=== PATIENT | male | born 1960 | race Caucasian/White ===

== ENCOUNTER 2020-05-13 16:13 | Emergency (ER) | payer OTHER ==
[~2020-05-13] VITALS: Ht 180 cm; Wt 92.9 kg
[~2020-05-13 16:13] MED LIST: BUDE10.22 IH; LISI10TA PO; MNTL10T PO; OMEP-10 PO; ZLP10T PO
[2020-05-13 16:53] LABS: BASOPHILS % (AUTO) 1 % (0-10); EOSINOPHILS # (AUTO) 0.2 10^3/uL (0.0-0.3); EOSINOPHILS % (AUTO) 3 % (0-10); HEMATOCRIT 45 % (40-54); HEMOGLOBIN 15.2 g/dL (13.3-17.7); LYMPHOCYTES # (AUTO) 1.8 10^3/uL (1.0-4.0); LYMPHOCYTES % (AUTO) 27 % (12-44); MEAN CORPUSCULAR HEMOGLOBIN 32 pg (25-34); MEAN CORPUSCULAR HGB CONC 34 g/dL (32-36); MEAN CORPUSCULAR VOLUME 93 fL (80-99); MEAN PLATELET VOLUME 10.5 fL (9.0-12.2); MONOCYTES # (AUTO) 0.5 10^3/uL (0.0-1.0); MONOCYTES % (AUTO) 8 % (0-12); NEUTROPHILS # (AUTO) 4.1 10^3/uL (1.8-7.8); NEUTROPHILS % (AUTO) 61 % (42-75); PLATELET COUNT 198 10^3/uL (130-400); WHITE BLOOD COUNT 6.6 10^3/uL (4.3-11.0)
--- NOTE | 2020-05-13 16:58 | ED General ---
General Chief Complaint: Dizziness/Syncope Stated Complaint: DIZZY/LIGHTHEADED Source of Information: Patient Exam Limitations: No Limitations (EDDIE HARDING MD) History of Present Illness Date Seen by Provider: May 13, 2020 Time Seen by Provider: 16:35 Initial Comments Patient is a 60-year-old male who presents to the emergency room today with a chief complaint of feeling "lightheaded", he describes this disease feels like he is going to pass out. Patient states that he has had similar symptoms in the past as he describes that he has had an intracranial hemorrhage related to elevated blood pressure approximately 1 year ago when he lived in [place]. Patient states to me that "a blood vessel popped in my head". He did not have any surgical intervention with this. He states it was found on MRI. He states after this "stroke" he underwent visual physical therapy to improve his symptoms. Patient states at the time he was off of his blood pressure medications and that is why this happened. Patient states that approximately 2 weeks ago when the symptoms of lightheadedness started he was taking lesser amounts of his blood pressure pills because he had not yet established care here. Patient denies any headache. He states occasionally his near vision is a little bit more blurry than usual. He denies double vision. He denies any unilateral weakness, numbness or tingling. No sensory deficits. No problems with balance or coordination. Patient denies any black or bloody stools, recent illness. All other review of systems reviewed and negative except as stated. Timing/Duration: Constant (2 weeks) Severity: Moderate Modifying Factors: worse with Movement (EDDIE HARDING MD) Allergies and Home Medications Allergies Coded Allergies: Penicillins (Verified Allergy, Unknown, 11/07/13) Home Medications Zolpidem Tartrate 10 Mg Tab, 10 MG PO HS, (Reported) Patient Home Medication List Home Medication List Reviewed: Yes (EDDIE HARDING MD) Review of Systems Review of Systems Constitutional: see HPI EENTM: blurred vision; No double vision Respiratory: no symptoms reported Cardiovascular: no symptoms reported Gastrointestinal: no symptoms reported Genitourinary: no symptoms reported Musculoskeletal: no symptoms reported Skin: no symptoms reported Psychiatric/Neurological: Other ("Lightheaded", feels near syncopal) (EDDIE HARDING MD) All Other Systems Reviewed Negative Unless Noted: Yes (EDDIE HARDING MD) Physical Exam Vital Signs Vital Signs - First Documented 05/13/20 16:39 Temp 36.4 Pulse 78 Resp 18 B/P (MAP) 161/130 (140) Pulse Ox 97 O2 Delivery Room Air (NITIN,TALITA K DO) Vital Signs Capillary Refill : (EDDIE HARDING MD) Height, Weight, BMI Height: 5'11.00" Weight: 235lbs. oz. 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 Norm as Tested; No Abnormal track laying machine operator II-XII, No Aphasia, No Disoriented, No EOM Palsy, No Facial Droop, No Motor Weakness, No Sensory Deficit Skin: Normal Color, Warm/Dry (EDDIE HARDING MD) Progress/Results/Core Measures Suspected Sepsis SIRS Temperature: Pulse: Respiratory Rate: Laboratory Tests 05/13/20 16:44: White Blood Count 6.6 Blood Pressure / Mean: Laboratory Tests 05/13/20 16:44: Creatinine 0.81, Platelet Count 198 (EDDIE HARDING MD) Results/Orders Lab Results Laboratory Tests Test 05/13/20 16:44 Range/Units White Blood Count 6.6 4.3-11.0 10^3/uL Red Blood Count 4.81 4.30-5.52 10^6/uL Hemoglobin 15.2 13.3-17.7 g/dL Hematocrit 45 40-54 % Mean Corpuscular Volume 93 80-99 fL Mean Corpuscular Hemoglobin 32 25-34 pg Mean Corpuscular Hemoglobin Concent 34 32-36 g/dL Red Cell Distribution Width 12.8 10.0-14.5 % Platelet Count 198 130-400 10^3/uL Mean Platelet Volume 10.5 9.0-12.2 fL Immature Granulocyte % (Auto) 0 % Neutrophils (%) (Auto) 61 42-75 % Lymphocytes (%) (Auto) 27 12-44 % Monocytes (%) (Auto) 8 0-12 % Eosinophils (%) (Auto) 3 0-10 % Basophils (%) (Auto) 1 0-10 % Neutrophils # (Auto) 4.1 1.8-7.8 10^3/uL Lymphocytes # (Auto) 1.8 1.0-4.0 10^3/uL Monocytes # (Auto) 0.5 0.0-1.0 10^3/uL Eosinophils # (Auto) 0.2 0.0-0.3 10^3/uL Basophils # (Auto) 0.0 0.0-0.1 10^3/uL Immature Granulocyte # (Auto) 0.0 0.0-0.1 10^3/uL Sodium Level 137 135-145 MMOL/L Potassium Level 3.7 3.6-5.0 MMOL/L Chloride Level 102 98-107 MMOL/L Carbon Dioxide Level 24 21-32 MMOL/L Anion Gap 11 5-14 MMOL/L Blood Urea Nitrogen 16 7-18 MG/DL Creatinine 0.81 0.60-1.30 MG/DL Estimat Glomerular Filtration Rate > 60 BUN/Creatinine Ratio 20 Glucose Level 108 H 70-105 MG/DL Calcium Level 9.8 8.5-10.1 MG/DL (NITIN,TALITA K DO) Vital Signs/I&O 05/13/20 16:39 Temp 36.4 Pulse 78 Resp 18 B/P (MAP) 161/130 (140) Pulse Ox 97 O2 Delivery Room Air (NITIN,TALITA K DO) Vital Signs/I&O Capillary Refill : (EDDIE HARDING MD) Progress Note : Progress Note ASSUMED CARE FROM DR. HARDING AT SHIFT [facility]ANGE PT IS ASYMPTOMATIC AND BP IS DOWN PT FEELS COMFORTABLE GOING HOME PT STATES HE MOVED BACK HERE IN NOVEMBER--USED TO SEE DR. PATIÑO, BUT HAS NOT ATTEMPTED TO RE-ESTABLISH WITH HER OR ANYONE. (NITIN,TALITA K DO) ECG Initial ECG Impression Date: May 13, 2020 Initial ECG Impression Time: 16:58 Initial ECG Rate: 78 Initial ECG Rhythm: Normal Sinus Initial ECG Intervals: Normal Initial ECG Impression: Normal Comment occasional PVC (EDDIE HARDING MD) Diagnostic Imaging Comments CT HEAD--NO ACUTE PROCESS, PER RADIOLOGIST REPORT AT 1817 Reviewed: Reviewed by Me (TALITA TAVERAS DO) Departure Impression Primary Impression: HTN (hypertension) Additional Impression: TRANSIENT DIZZINESS Disposition: HOME, SELF-CARE Condition: Improved Departure-Patient Inst. Referrals: NO,LOCAL PHYSICIAN (PCP/Family) Primary Care Physician Patient Instructions: DASH Diet, High Blood Pressure (DC) Add. Discharge Instructions: HOME, REST TAKE YOUR MEDICATIONS PRESCRIBED FOLLOW UP WITH OF CHOICE THIS WEEK FOR FURTHER CARE, RETURN TO ER IF WORSE All discharge instructions reviewed with patient and/or family. Voiced understanding. Work/School Note: Local Medical Staff Listing EDDIE HARDING MD May 13, 2020 16:58 TALITA TAVERAS DO May 13, 2020 18:25
[2020-05-13 17:00] LABS: CHLORIDE 102 MMOL/L (98-107); POTASSIUM 3.7 MMOL/L (3.6-5.0); SODIUM 137 MMOL/L (135-145)
[2020-05-13] MEDS ORDERED: LABETALOL HCL 20 MG/4 ML VIAL IV ONE (17:00)
[2020-05-13 17:01] LABS: CALCIUM 9.8 MG/DL (8.5-10.1)
[2020-05-13 17:02] LABS: GLUCOSE 108 MG/DL (70-105)
[2020-05-13 17:03] LABS: CARBON DIOXIDE 24 MMOL/L (21-32)
[2020-05-13 17:06] LABS: BUN/CREATININE RATIO 20; CREATININE SERUM 0.81 MG/DL (0.60-1.30); GFR ESTIMATED > 60
--- NOTE | 2020-05-13 18:13 | Diagnostic Imaging Report ---
PROCEDURE: CT head without contrast. TECHNIQUE: Multiple contiguous axial images were obtained through the brain without the use of intravenous contrast. Auto Exposure Controls were utilized during the CT exam to meet ALARA standards for radiation dose reduction. INDICATION: Intracranial hemorrhage. COMPARISON: There is no prior study available for comparison. FINDINGS: There is no mass, shift of the midline or hemorrhage to suggest an acute intracranial abnormality. The normal tentorial blush is evident. The ventricles are not abnormally dilated. The bone windows show no sign of a fracture or of a destructive lesion. The orbits and sinuses were not visualized in their entirety. Where visualized, there is no acute abnormality. IMPRESSION: 1. There is no evidence for an acute intracranial abnormality. 2. If clinical concern regarding an underlying abnormality persists, then MRI would be recommended for further study. Dictated by: Dictated on workstation # [id number]
[2020-05-13 18:36] VITALS: BP 140/108
== END 2020-05-13 18:35 | disposition home or self-care (01) ==
LOC: EDUNIT# 16:13 → ER 16:16
DX: I10 Essential (primary) hypertension (principal); R42 Dizziness and giddiness; Z88.0 Allergy status to penicillin
CPT/HCPCS: 36415; 70450; 80048; 85025; 93005

== ENCOUNTER 2020-07-12 05:38 | Outpatient (CLI) | payer OTHER ==
[~2020-07-12] VITALS: Ht 180.3 cm; Wt 102.2 kg
[2020-07-12] MEDS ORDERED: ASPI-999 PO (13:33)
[2020-07-12] MEDS ORDERED: AMLO-251 PO (13:33)
[2020-07-12] MEDS ORDERED: LISI1TAB46 PO (13:33)
[2020-07-12] MEDS ORDERED: ZOLP5TAB PO (13:33)
[2020-07-12] MEDS ORDERED: NAPR-1071 PO (13:33)
[2020-07-13] MEDS ORDERED: ceFAZolin 2 GM IV Premixed 50 ML IV ONE (06:15)
[2020-07-17] MEDS ORDERED: DOXA4TAB2 PO (11:13)
== END 2020-07-13 13:54 | disposition home or self-care (01) ==
LOC: PREOP 05:38
PROVIDERS: ATTEND Surgery
DX: Z01.818 Encounter for other preprocedural examination (principal)

== ENCOUNTER 2020-07-18 08:23 | Day surgery (SDC) | payer OTHER ==
[2020-07-18] VITALS (9 sets, daily range): BP systolic 97–125; BP diastolic 64–81
[~2020-07-18] VITALS: Ht 180.3 cm; Wt 102.2 kg
[~2020-07-18 08:23] MED LIST changes: +AMLO-251 PO; +ASPI-999 PO; +DOXA4TAB2 PO; +LISI1TAB46 PO; +NAPR-1071 PO; +ZOLP5TAB PO
[2020-07-18] MEDS ORDERED: LACTATED RINGERS 1,000 ML IV PRN (08:45)
[2020-07-18] MEDS ORDERED: LIDOCAINE/EPI 1%-1:100,000 (XYLOCAINE) 20ML ONE (09:06)
[2020-07-18] MEDS ORDERED: FLUT9.9S NS (09:16)
[2020-07-18] MEDS ORDERED: LIDOCAINE PF 2% 5 ML (XYLOCAINE) VIAL ONE (09:26)
[2020-07-18] MEDS ORDERED: SEVOFLURANE (ULTANE) 15 ML INHAL SOLN ONE ×4 (09:26→10:30)
[2020-07-18] MEDS ORDERED: proPOfol 200 MG/20 ML (DIPRIVAN) VIAL IV ONE (09:26)
[2020-07-18] MEDS ORDERED: MIDAZOLAM 2 MG/2 ML (VERSED) VIAL ONE (09:29)
[2020-07-18] MEDS ORDERED: fentaNYL INJ 100 MCG/2 ML AMP ONE (09:29)
[2020-07-18] MEDS ORDERED: CLINDAMYCIN 600 MG/50 ML IVPB 50 ML IV ONE (09:30)
--- NOTE | 2020-07-18 09:44 | Progress Note-Pre Operative ---
Pre-Operative Progress Note H&P Reviewed The H&P was reviewed, patient examined and no changes noted. Time Seen by Provider: 09:41 Date H&P Reviewed: Jul 18, 2020 Time H&P Reviewed: 09:41 Pre-Operative Diagnosis: Posterior neck mass MELANY RIBERA DO Jul 18, 2020 09:44
[2020-07-18] MEDS ORDERED: SUCCINYLCHOLINE INJ 100 MG/5 ML SYR/VIAL ONE (10:18)
[2020-07-18] MEDS ORDERED: ROCURONIUM 10 MG/ML 5 ML SYRINGE IV ONE (10:18)
[2020-07-18] MEDS ORDERED: LIDOCAINE JELLY 2% 6 ML SYRINGE ONE (10:18)
[2020-07-18] MEDS ORDERED: ONDANSETRON 4 MG/2 ML (SDV) Z0FRAN ONE (10:31)
--- NOTE | 2020-07-18 10:38 | Progress Note-Post Operative ---
Post-Operative Progess Note Surgeon (s)/Peeled Potato Inspector (s) Surgeon MELANY RIBERA DO Peeled Potato Inspector: ESTEFANÍA Loredo Pre-Operative Diagnosis Posterior neck mass Post-Operative Diagnosis same pending path Procedure & Operative Findings Date of Procedure 07/18/20 Procedure Performed/Findings Exc posterior neck mass, 4.9cm incision Anesthesia Type GET Estimated Blood Loss Estimated blood loss (mL): scant Specimens/Packing Specimens Removed Posterior neck mass, 2.6 x 2.2 x 1.3 MELANY RIBERA DO Jul 18, 2020 10:38
[2020-07-18] MEDS ORDERED: ACHD5005 PO (10:39)
--- NOTE | 2020-07-18 10:40 | Discharge Inst-Surgical ---
Discharge Inst-Surgical Depart Medication/Instructions New, Converted or Re-Newed RX: RX Given to Pt/Family Patient Instructions Follow up Appt: Make appointment for 1 week. [phone] Instructions: No lifting greater than 20 pounds. No strenuous activity. May shower in 24 hours, no tub bath or soaking. Use incentive spirometer at home as directed. No Smoking Skin/Wound Care: May remove bandages in am. You need to leave the Dermabond on incision it will fall off on it's own. Symptoms to Report: Appetite Changes, Extremity Discoloration, Numbness/Tingling, Swelling Increased, Bleeding Excessive, Eyesight Changes, Pain Increased, Urine Color Change, Constipation(Persistent), Fever over 101 degree F, Pain/Pressure in chest, Urinating Difficulty, Cough Up/Vomit Blood, Heart Beat Irreg/Pounding, Pain/Pressure in jaw, Cramps in feet or legs, Lightheadedness, Pain/Pressure in shoulder, Diarrhea(Persistent), Memory Changes Suddenly, Questions/Concerns, Weight gain consecutive days, Dizziness/Fainting, Nausea/Vomiting, Shortness of Breath, Weight gain over 2 pounds If questions or concerns contact your physician Or seek help at emergency department. Activity Activity as Tolerated: Yes Activity Instructions: Avoid Stress to Incision Driving Instructions: No Driving/Refer to Dr. Liriano Discharge Diet: No Restrictions Diet After 24 Hours: Clear Liquid if Nauseous If Any Problems/Questions/Issu: Contact Your Physician, Go to Emergency Room Skin/Wound Care Infection Signs and Symptoms: Increased Redness, Foul Odor of Wound, Increased Drainage, Skin Itchy or Has a Rash, Increased Swelling, Temperature Above 101 F Bathing Instructions: Shower Stitches/[place]/Dermabond Dis: Care of Stitches MELANY RIBERA DO Jul 18, 2020 10:40
[2020-07-18] MEDS ORDERED: fentaNYL INJ 100 MCG/2 ML AMP IVP ONE (11:00)
[2020-07-18] MEDS ORDERED: morphine INJ 10 MG/ML 1ML (SYR OR VIAL) IVP ONE (11:00)
[2020-07-18] MEDS ORDERED: ONDANSETRON 4 MG/2 ML (SDV) Z0FRAN IVP PRN (11:00)
[2020-07-18] MEDS ORDERED: MEPERIDINE (DEMEROL) INJ 50 MG/ML IVP ONE (11:00)
--- NOTE | 2020-07-18 12:02 | Anesthesia-General Post-Op ---
General Patient Condition Mental Status/LOC: Same as Preop Cardiovascular: Satisfactory Nausea/Vomiting: Absent Respiratory: Satisfactory Pain: Controlled Complications: Absent Post Op Complications Complications None Follow Up Care/Instructions Patient Instructions None needed. Anesthesia/Patient Condition Patient Condition Patient is doing well, no complaints, stable vital signs, no apparent adverse anesthesia problems. No complications reported per nursing. LEIGH ANN POSADAS CRNA Jul 18, 2020 12:02
--- NOTE | 2020-07-18 23:40 | OPERATIVE REPORT ---
DATE OF SERVICE: PREOPERATIVE DIAGNOSIS: Posterior neck mass. POSTOPERATIVE DIAGNOSIS: Posterior neck mass, pending pathology. PROCEDURE: Excision of posterior neck mass, incision was 4.9 cm, neck mass measured 2.6 x about 2.2 x about 1.3. SURGEON: Frank Mcclellan DO HOT DIP PLATER: LENARD Loredo. ANESTHESIA: General endotracheal tube. SPECIMEN: Posterior neck mass. BLOOD LOSS: Scant. FLUIDS: Per anesthesia. POSTOPERATIVE CONDITION: Stable. INDICATION FOR PROCEDURE: The patient is a 60-year-old male who has a mass in the back of his neck that felt like was about 3-4 cm in size and he stated it had drained before, wanted to get this removed, it was causing him pain and problems. FINDINGS: The patient had a posterior neck mass still in the subcutaneous tissue, not subfascial, removed, measured when it was out as 2.6 x 2.2 x 1.3 cm. PROCEDURE NOTE: After informed consent was obtained, the patient was brought to the operating room. He was intubated and placed on table in prone position, sterilely prepped and draped in normal fashion. Local lidocaine was used to infiltrate over this mass, had circled it, looked like it was about 3-4 cm, made an incision of 4.9 cm with a #15 blade, carried down through the skin into subcutaneous tissue, then deepened down to subcutaneous tissue with Bovie electrocautery, down to what I felt was the mass deep in the subcutaneous tissue, dissected around this and removed this en bloc, passed off table, measured 2.6 x 2.2 x 1.3 cm. Copiously irrigated with some lidocaine. Hemostasis was obtained using Bovie electrocautery, then elected to close the incision with 2-0 nylon 3 vertical mattress sutures and then 4 simple interrupted sutures. Area was cleaned and dried, dressing placed. The patient tolerated the procedure and transferred to recovery room in stable condition. Sponge, instrument and needle count correct at the end of the case. Job ID: [id number] DocumentID: [id number] Dictated Date: 07/18/2020 16:28:44 Foreign Banknote Teller Trader Date: 07/18/2020 23:39:04 Dictated By: FRANK MCCLELLAN DO [facility]
== END 2020-07-18 12:30 | disposition home or self-care (01) ==
LOC: SDC 08:23
PROVIDERS: ATTEND Surgery
DX: R22.1 Localized swelling, mass and lump, neck (principal); I10 Essential (primary) hypertension; G47.33 Obstructive sleep apnea (adult) (pediatric); Z79.899 Other long term (current) drug therapy; Z88.0 Allergy status to penicillin; Z87.891 Personal history of nicotine dependence
CPT/HCPCS: 87081; 88307

== ENCOUNTER 2021-01-29 13:39 | Outpatient (RCR) | payer OTHER ==
[~2021-01-29 13:39] MED LIST changes: +ACHD5005 PO; +FLUT9.9S NS
== END 2021-02-27 13:40 | disposition home or self-care (01) ==
PROVIDERS: ATTEND Nurse Practitioner Family
DX: M54.16 Radiculopathy, lumbar region (principal); I10 Essential (primary) hypertension

== ENCOUNTER → 2022-12-01 | Outpatient (CLI) | payer OTHER ==
--- NOTE | 2022-12-01 16:51 | Diagnostic Imaging Report ---
EXAMINATION: Right shoulder radiographs, 3 views. COMPARISON: None. HISTORY: 62-year-old male, right shoulder pain. FINDINGS: The acromioclavicular joint is normally aligned. There are no acromioclavicular degenerative changes. The humeral head is normally positioned relative to the glenoid. There is no identified acute fracture. The glenohumeral joint space is well preserved. IMPRESSION: 1. No acute bony abnormality in the right shoulder. 2. Intact glenohumeral and acromioclavicular joints. Dictated on workstation # [id number]
== END ==
LOC: RAD 14:32
PROVIDERS: ATTEND Physician Assistant
DX: M25.511 Pain in right shoulder (principal); G89.29 Other chronic pain
CPT/HCPCS: 73030

== ENCOUNTER 2022-12-10 05:53 | Outpatient (CLI) | payer OTHER ==
[~2022-12-10] VITALS: Ht 180.3 cm; Wt 108.6 kg
[2022-12-10] MEDS ORDERED: SEMA0.258 SQ (14:24)
== END 2022-12-10 14:31 | disposition home or self-care (01) ==
LOC: PREOP 05:53
PROVIDERS: ATTEND Surgery
DX: Z01.818 Encounter for other preprocedural examination (principal)

== ENCOUNTER 2022-12-17 08:55 | Day surgery (SDC) | payer OTHER ==
[2022-12-17] VITALS (12 sets, daily range): BP systolic 106–125; BP diastolic 66–78
[~2022-12-17] VITALS: Ht 180 cm; Wt 110.7 kg
[~2022-12-17 08:55] MED LIST changes: +SEMA0.258 SQ
[2022-12-17] MEDS: LACTATED RINGERS 1,000 ML 1,000 ML IV PRN ×2 (09:33→13:16)
[2022-12-17] MEDS ORDERED: CLINDAMYCIN 600 MG/50 ML IVPB 50 ML IV ONE ×3 (10:56→12:00)
--- NOTE | 2022-12-17 11:01 | Progress Note-Pre Operative ---
Pre-Operative Progress Note Date of Available H&P: Dec 09, 2022 Date H&P Reviewed: Dec 17, 2022 Time H&P Reviewed: 10:58 History & Physical: H&P Reviewed, Patient Examed, No changes noted Pre-Operative Diagnosis: incarcerated umbilical hernia MELANY RIBERA DO Dec 17, 2022 11:01
[2022-12-17] MEDS ORDERED: LIDOCAINE/EPI 1%-1:200,000 (XYLOCAINE) 30 ML VIAL ONE (12:51)
[2022-12-17] MEDS ORDERED: fentaNYL INJECTION 100 MCG/2 ML VIAL ONE (13:02)
[2022-12-17] MEDS ORDERED: proPOfol INJECTION 200 MG/20 ML VIAL IV ONE (13:02)
[2022-12-17] MEDS ORDERED: LIDOCAINE PF 2% 5 ML VIAL ONE (13:02)
[2022-12-17] MEDS ORDERED: MIDAZOLAM INJ 2 MG/2 ML VIAL ONE (13:03)
[2022-12-17] MEDS ORDERED: ROCURONIUM 50 MG/5 ML VIAL IV ONE (13:05)
[2022-12-17] MEDS ORDERED: dexAMETHasone INJ 10 MG/ML 1 ML VIAL ONE (13:05)
[2022-12-17] MEDS ORDERED: ONDANSETRON INJECTION 4 MG/2 ML (SDV) ONE (13:05)
[2022-12-17] MEDS ORDERED: NEOSTIGMINE 1 MG/1ML 10 ML VIAL ONE (13:30)
[2022-12-17] MEDS ORDERED: GLYCOPYRROLATE INJ 0.2 MG/ML 2 ML VIAL ONE (13:30)
[2022-12-17] MEDS ORDERED: SEVOFLURANE (ULTANE) 15 ML INHAL SOLN ONE (14:03)
--- NOTE | 2022-12-17 14:04 | Progress Note-Post Operative ---
Post-Operative Progess Note Surgeon (s)/Management Planner (s) Surgeon MELANY RIBERA DO Management Planner: Silver Pre-Operative Diagnosis incarcerated umbilical hernia Post-Operative Diagnosis Same plus small ventral hernia above Procedure & Operative Findings Date of Procedure 12/17/22 Procedure Performed/Findings Laparoscopic Umbilical and Ventral Herniarraphy with mesh placement, measured appx 3.5cm DESCRIPTION OF PROCEDURE: The patient was taken into the operating suite, prepped and draped in sterile fashion. Surgical pause was performed. Local anesthetic was infiltrated in left upper quadrant. A #11 blade scalpel was used to make a small skin incision. Cautery was used to dissect down to the fascia, which was then scored and divided the muscle, went through the posterior sheath and a balloon trocar was inserted into the abdomen. The ab domen was then insufflated. Saw what looked like an umbilical hernia and another ventral hernia; incarcerated. An 8 mm robotic trocar was placed approximately 10cm below the LUQ port and the another in the left lower quadrant. Then used bovie cautery on the scissors and the bipolar to take down the preperitoneal fat and pull fat out of both hernias. Once all the fat was out, took a picture of the two defects and the bridge. The total length measured approximately 3.5cm total. An Echo Ventralight 4.5 inch round mesh was then inserted in the abdomen grabbed through a stab incision with the Patrick Bedoya. The balloon was inflated on the mesh. Circumferential tacks were placed with a SecureStrap Tacker and tacked up the preperitoneal fat we had taken down. The balloon was then removed and inner crown was created as well. The mesh was tacked with pressure being decreased. The 12 mm fascial defect was then closed using 0 Vicryl. The abdomen was then desufflated,the trocars were removed. The skin was then closed using 4-0 Monocryl in a subcuticular fashion. The abdomen was washed and dried and Skin Affix was placed over the incisions. The patient tolerated procedure well without any complications. He was taken to recovery room in stable condition. Dr. Sheppard assisted on this case helping to make incisions, close incisions, identify anatomy and then to tack the mesh in place. Anesthesia Type GET Estimated Blood Loss Estimated blood loss (mL): scant Specimens/Packing Specimens Removed none MELANY RIBERA DO Dec 17, 2022 14:04
[2022-12-17] MEDS ORDERED: ACHD5005 PO (14:05)
--- NOTE | 2022-12-17 14:06 | Discharge Inst-Surgical ---
Discharge Inst-Surgical Depart Medication/Instructions New, Converted or Re-Newed RX: Transmitted to Pharmacy Patient Instructions Follow up Appt: Make appointment for 1 week. [phone] Instructions: No lifting greater than 20 pounds. No strenuous activity. May shower in 24 hours, no tub bath or soaking. Use incentive spirometer at home as directed. No Smoking Skin/Wound Care: May remove bandages in am. You need to leave the Dermabond on incision it will fall off on it's own. Symptoms to Report: Appetite Changes, Extremity Discoloration, Numbness/Tingling, Swelling Increased, Bleeding Excessive, Eyesight Changes, Pain Increased, Urine Color Change, Constipation(Persistent), Fever over 101 degree F, Pain/Pressure in chest, Urinating Difficulty, Cough Up/Vomit Blood, Heart Beat Irreg/Pounding, Pain/Pressure in jaw, Cramps in feet or legs, Lightheadedness, Pain/Pressure in shoulder, Diarrhea(Persistent), Memory Changes Suddenly, Questions/Concerns, Weight gain consecutive days, Dizziness/Fainting, Nausea/Vomiting, Shortness of Breath, Weight gain over 2 pounds If questions or concerns contact your physician Or seek help at emergency department. Activity Activity as Tolerated: Yes Activity Instructions: Avoid Stress to Incision Driving Instructions: No Driving/Refer to Dr. Liriano Discharge Diet: No Restrictions Diet After 24 Hours: Clear Liquid if Nauseous If Any Problems/Questions/Issu: Contact Your Physician, Go to Emergency Room Skin/Wound Care Infection Signs and Symptoms: Increased Redness, Foul Odor of Wound, Increased Drainage, Skin Itchy or Has a Rash, Increased Swelling, Temperature Above 101 F Wound Care Comment: heating pad to shoulder or neck tonight for pain Bathing Instructions: Shower Stitches/[place]/Dermabond Dis: [place] MELANY RIBERA DO Dec 17, 2022 14:06
--- NOTE | 2022-12-17 14:26 | Anesthesia-General Post-Op ---
General Patient Condition Mental Status/LOC: Same as Preop Cardiovascular: Satisfactory Nausea/Vomiting: Absent Respiratory: Satisfactory Pain: Controlled Complications: Absent Post Op Complications Complications None Follow Up Care/Instructions Patient Instructions None needed. Anesthesia/Patient Condition Patient Condition Patient is awake in PACU and doing well, no complaints, stable vital signs, no apparent adverse anesthesia problems. No complications reported per nursing. ALBER SOUZA DO Dec 17, 2022 14:26
[2022-12-17] MEDS ORDERED: HYDROmorphone INJECTION 2 MG/ML VIAL ONE (14:29)
[2022-12-17] MEDS ORDERED: HYDROmorphone INJECTION 2 MG/ML VIAL IV ONE (14:30)
[2022-12-17] MEDS: ONDANSETRON INJECTION 4 MG/2 ML (SDV) IVP PRN ×2 (14:38→15:09)
[2022-12-17] MEDS: morphine INJ 10 MG/ML 1ML (SYR OR VIAL) IVP ONE ×2 (14:52→14:57)
[2022-12-17] MEDS ORDERED: HYDROcodone/ACETAMINOPHEN 5 MG/325 MG TABLET PO ONE (15:45)
[2022-12-17] MEDS ORDERED: HYDROcodone/ACETAMINOPHEN 5 MG/325 MG TABLET ONE (15:46)
== END 2022-12-17 16:30 | disposition home or self-care (01) ==
LOC: SDC 08:55
PROVIDERS: ATTEND Surgery
DX: K42.0 Umbilical hernia with obstruction, without gangrene (principal); K43.6 Other and unspecified ventral hernia with obstruction, without gangrene; G47.33 Obstructive sleep apnea (adult) (pediatric); Z99.81 Dependence on supplemental oxygen; Z87.891 Personal history of nicotine dependence
CPT/HCPCS: 49594; 87081; 94664; C1781